=== PATIENT | male | born 1970 | race Caucasian/White ===

== ENCOUNTER 2019-06-03 09:22 | Emergency (ER) | payer SELFPAY ==
[2019-06-03] MEDS ORDERED: DIPH,PERTUSS(ACELL),TET VAC/PF 0.5 ML DISP.SYRIN IM ONE (09:53)
[2019-06-03] MEDS ORDERED: CEPHALEXIN 250 MG CAPSULE ONE (09:55)
[2019-06-03] MEDS ORDERED: LIDOCAINE HCL 1% MDV 200MG/20ML VIAL ONE (09:55)
[2019-06-03] MEDS ORDERED: ACETAMINOPHEN 500 MG TABLET ONE (09:55)
--- NOTE | 2019-06-21 13:21 | Diagnostic Imaging Report ---
CHULA COLE [facility] [id number] [facility] [address] [address] Report Submission Date: Jun 03, 2019 10:07:09 AM CDT Patient Study Name: DAVID BASSETT Date: Jun 03, 2019 9:40:31 AM CDT Modality Type: DX Gender: M Description: FINGER 2 VIEWS OR MORE : 70 Institution: [facility] Physician: CHULA COLE HISTORY: 48-year-old male with right index finger laceration, table saw injury COMPARISON: None available TECHNIQUE: Three views of the right index finger were performed. FINDINGS: There is a tiny cortical fracture of the lateral base of the right index finger distal phalanx. There is an adjacent open wound laterally. No other fractures are identified about the right index finger. No radiopaque foreign bodies are identified in the soft tissues. IMPRESSION: Open fracture of the right index finger distal phalanx lateral base. Electronically signed on Jun 03, 2019 10:07:09 AM CDT by: Adriano HOLCOMB
[2019-06-26 01:24] VITALS: BP 134/75
== END 2019-06-03 11:23 | disposition home or self-care (01) ==
LOC: ED 09:22
DX: S61.212A Laceration without foreign body of right middle finger without damage to nail, initial encounter (principal); W26.8XXA Contact with other sharp object(s), not elsewhere classified, initial encounter
CPT/HCPCS: 12001; 73130; 90715; 99283; 99284

== ENCOUNTER 2019-06-25 19:15 | Emergency (ER) | payer SELFPAY ==
--- NOTE | 2019-06-25 19:21 | ED Physician Documentation ---
General Adult - HISTORIAN Historian: patient - HPI Stated Complaint: fit for confinement Chief Complaint: General Adult Additional Information: Patient presents to ED with police escort for fit for confinement evaluation. Patient denies any complaints at this time. He does not take any medications. - ROS CONST: no problems EYES/ENT: none CVS/RESP: denies: chest pain, shortness of breath GI/: denies: abdominal pain MS/SKIN/LYMPH: none NEURO/PSYCH: denies: headache - PAST HX Past History: COPD Other History: none Surgeries/Procedures: none Allergies/Adverse Reactions: Allergies Allergy/AdvReac Type Severity Reaction Status Date / Time No Known Allergies Allergy Verified 01/06/19 22:49 - SOCIAL HX Smoking History: cigarettes, greater than 1 pack/day Alcohol Use: occasionally Drug Use: none - FAMILY HX Family History: No - REVIEWED ASSESSMENTS Nursing Assessment Reviewed: Yes Vitals Reviewed: Yes General Adult Physical Exam - PHYSICAL EXAM GENERAL APPEARANCE: no distress EENT: LUIS NECK: supple RESPIRATORY: no resp distress, chest non-tender, breath sounds normal CVS: reg rate & rhythm, heart sounds normal ABDOMEN: soft, normal bowel sounds, non-tender BACK: normal inspection SKIN: warm/dry, normal color EXTREMITIES: non-tender, normal range of motion, no evidence of injury, no edema NEURO: oriented X3, mood/affect nml, cognition normal Discharge Clincal Impression: Well adult Referrals: Primary Doctor,No [Primary Care Provider] - 2 Days Additional Instructions: 1. Patient is fit for confinement 2. Follow up with PCP as needed. Condition: Stable Disposition: 01 HOME, SELF-CARE Decision to Admit: NO Date of Decison to Admit: 06/25/19 Decision Time: 19:23
[2019-06-26 01:24] VITALS: BP 134/75
== END 2019-06-25 19:26 | disposition home or self-care (01) ==
LOC: ED 19:15
DX: Z00.00 Encounter for general adult medical examination without abnormal findings (principal); F17.210 Nicotine dependence, cigarettes, uncomplicated
CPT/HCPCS: 99281; 99282